=== PATIENT | female | born 1985 | race African-American/Black ===

== ENCOUNTER 2017-06-07 14:45 | Emergency (ER) | payer MEDICARE, MEDICAID ==
[~2017-06-07] VITALS: Ht 170.2 cm; Wt 90.9 kg
[2017-06-07] MEDS ORDERED: TRAZ-144 PO (14:59)
[2017-06-07] MEDS ORDERED: HYDR10SY16 PO (14:59)
[2017-06-07] MEDS ORDERED: PROZ10 PO (14:59)
[2017-06-07] MEDS ORDERED: ALPR0.255 PO (14:59)
[2017-06-07] MEDS ORDERED: LORazepam 1 MG TABLET PO ONE (15:45)
[2017-06-07 16:21] VITALS: BP 122/78
== END 2017-06-07 16:28 | disposition home or self-care (01) ==
LOC: EMS 14:47
DX: F41.9 Anxiety disorder, unspecified (principal); R20.0 Anesthesia of skin; F17.210 Nicotine dependence, cigarettes, uncomplicated
CPT/HCPCS: 99284